=== PATIENT | male | born 1960 | race Caucasian/White ===

== ENCOUNTER 2016-10-19 09:04 | Emergency (ER) | payer MEDICARE, MEDICAID ==
[~2016-10-19] VITALS: Ht 172.7 cm; Wt 86.3 kg
[~2016-10-19 09:04] MED LIST: ALBUTEROL SUL0.083 % IN; ALBUTEROL2.5 MG/3 M IN; ATIVAN0.5 MG PO; AUGMENTIN500TAB PO; AUGMENTIN875TAB PO; BRETHINE2.5 MG PO; CIPRO XR500 M2 PO; CIPROFLOXACN500 MG PO; CLEOCIN300 MG PO; COLCHICINE0.6 M2 PO; COMBIVENT IN; CRESTOR20 MG OR; DOXYCYCL HYC100 MG PO; DURA-NEB2000 MG; GLUCOPHAGE500 MG PO; GLUCOTROL EXTE2.5 M1 PO; GLUCOTROL5 MG PO; GLUCOVANCE5 MG/500 M OR; GLYBURIDE/METFO1 TA1 PO; HUMULIN R1 M1 SC; HYDROCHLOROT25 MG PO; HYDROCO/APAP1 TA9 PO; IPRATROPIUM BROMIDE/ IN; LABETALOL100 MG PO; LANTUS SC; LANTUS100 MG/ML SC; LEXAPRO20 MG OR; LIPITOR20 M1 PO; LISINOPRIL10 MG PO; LISINOPRIL20 M1 PO; LISINOPRIL20 MG PO; LO-DOSE ASA81 MG PO; LORTAB 7.5-3251 TAB PO; LYRICA150 MG PO; LYRICA75 MG PO; NEURONTIN300 MG PO; NEURONTIN600 MG OR; NEXIUM40 M1 PO; NEXIUM40 MG PO; NITROSTAT0.3 MG SL; NITROSTAT0.4 MG SL; NORCO1 TA1 PO; NOVOLIN 70/30 INNLT SC; NOVOLIN R IJ; NOVOLO1 SC; NOVOLOG FLEXPEN SC; NOVOLOG100 IU/1 M SC; OMEPRAZOLE20 MG PO; OXAYDO7.5 MG PO; PAROXETINE10 MG PO; PAXIL40 MG PO; PERCOCET 5/325M1 TAB PO; PLAVIX75 MG PO; PRAVACHOL40 MG PO; PROAIR HFA IN; QVAR80 MCG IN; RESTORIL15 M1 PO; SEROQUEL100 MG PO; SEROQUEL300 MG OR; SEROQUEL50 MG OR; VIAGRA100 MG PO; ZESTRIL/PRI20 MG/TAB PO; ZESTRIL10 M1 PO; ZOLPIDEM10 M1 PO; allo PO
[2016-10-19 09:52] LABS: HEMATOCRIT 34.1 % (39.0-50.0); HEMOGLOBIN 10.8 g/dl (14.0-18.0); IMMATURE GRANULOCYTES 1.8 % (0.0-1.0); MEAN CELL VOLUME 96.3 fL CALC (80.0-100.0); MEAN CORPUSCULAR HGB 30.5 pG CALC (26.0-32.0); MEAN CORPUSCULAR HGB CONC 31.7 g/L CALC (32.0-36.0); NEUT# 10.73 thou/uL (1.82-7.42); RED BLOOD COUNT 3.54 mill/uL (4.70-6.10); RED CELL DISTRI WIDTH 12.8 % (11.5-15.5)
[2016-10-19 10:03] LABS: URINE BILIRUBIN - DIPSTICK NEGATIVE (NEGATIVE); URINE BLOOD DIPSTICK SMALL (NEGATIVE); URINE CLARITY CLEAR; URINE COLOR YELLOW; URINE GLUCOSE - DIPSTICK NEGATIVE (NEGATIVE); URINE KETONE TRACE mg/dL (NEGATIVE); URINE LEUK ESTERASE NEGATIVE (NEGATIVE); URINE NITRITE - DIPSTICK NEGATIVE (Negative); URINE PH 6.5 (4.5-8.0); URINE PROTEIN - DIPSTICK 100 mg/dL (NEG-TRACE); URINE UROBILINOGEN - DIPSTICK 0.2 E.U./dL (0.2)
[2016-10-19 10:04] LABS: URINE SQUAMOUS EPITHELIAL CELL FEW EPI/hpf (0-FEW)
[2016-10-19 10:10] VITALS: BP 158/78
[2016-10-19 10:20] LABS: ALBUMIN 4.6 g/dL (3.2-5.0); BILIRUBIN, TOTAL 0.6 mg/dL (0.0-1.4); CALCIUM 9.5 mg/dL (8.4-10.2); CREATININE 2.4 mg/dL (0.7-1.3); TOTAL PROTEIN 7.9 g/dL (6.3-8.2)
[2016-10-19 10:32] LABS: POTASSIUM 9.1 mmol/l (3.5-5.1)
== END 2016-10-19 10:10 | disposition short-term general hospital (02) ==
LOC: ED 09:04
PROVIDERS: Emergency Medicine
PROC: 05H533Z Insertion of Infusion Device into Right Subclavian Vein, Percutaneous Approach (ICD-10-PCS; principal; 2016-10-19)
PROC: 0T9B70Z Drainage of Bladder with Drainage Device, Via Natural or Artificial Opening (ICD-10-PCS; 2016-10-19)
PROC: 0D9670Z Drainage of Stomach with Drainage Device, Via Natural or Artificial Opening (ICD-10-PCS; 2016-10-19)
DX: I46.9 Cardiac arrest, cause unspecified (principal); R07.9 Chest pain, unspecified; F17.210 Nicotine dependence, cigarettes, uncomplicated; E78.5 Hyperlipidemia, unspecified; I25.10 Atherosclerotic heart disease of native coronary artery without angina pectoris; I10 Essential (primary) hypertension; Z95.5 Presence of coronary angioplasty implant and graft; E11.9 Type 2 diabetes mellitus without complications; Z79.4 Long term (current) use of insulin; Z86.711 Personal history of pulmonary embolism; Z79.01 Long term (current) use of anticoagulants
CPT/HCPCS: J0282